=== PATIENT | female | born 1970 | race Caucasian/White ===

== ENCOUNTER 2017-07-27 02:54 | Emergency (ER) | payer BC ==
[~2017-07-27] VITALS: Ht 185.4 cm; Wt 63.6 kg
[~2017-07-27 02:54] MED LIST: BUPROPRION; ESTROGEL0.06%; NEURONTIN600 M1 PO; SEROQUEL; SUMATRIPTAN20 MG PO
[2017-07-27] MEDS ORDERED: KLONOPIN 1MG1 MG PO (03:08)
[2017-07-27] MEDS ORDERED: ZOVIRAX400 M1 PO (03:08)
[2017-07-27] MEDS ORDERED: ADDERALL 20 MG20 MG PO (03:08)
[2017-07-27] MEDS ORDERED: PROPRANOLOL HCL80 M4 PO (03:09)
[2017-07-27] MEDS ORDERED: SYNTHROID0.125 MG PO (03:09)
[2017-07-27] MEDS ORDERED: SEROQUEL 2525 MG/TAB PO (03:09)
[2017-07-27] MEDS ORDERED: IMITREX50 M1 PO (03:11)
[2017-07-27] MEDS ORDERED: FETZIMA40 MG PO (03:12)
[2017-07-27 04:43] VITALS: BP 135/77
== END 2017-07-27 04:43 | disposition home or self-care (01) ==
LOC: ED 02:54
DX: G43.109 Migraine with aura, not intractable, without status migrainosus (principal); F31.9 Bipolar disorder, unspecified; E03.9 Hypothyroidism, unspecified; D49.7 Neoplasm of unspecified behavior of endocrine glands and other parts of nervous system
CPT/HCPCS: J1200; J1885; J2550

== ENCOUNTER → 2018-04-15 | Day surgery (SDC) | payer BC ==
[~2018-04-15] MED LIST changes: +ADDERALL 20 MG20 MG PO; +FETZIMA40 MG PO; +IMITREX50 M1 PO; +KLONOPIN 1MG1 MG PO; +PROPRANOLOL HCL80 M4 PO; +SEROQUEL 2525 MG/TAB PO; +SYNTHROID0.125 MG PO; +ZOVIRAX400 M1 PO
== END ==
LOC: MSO 09:38
DX: Z12.11 Encounter for screening for malignant neoplasm of colon (principal); E03.9 Hypothyroidism, unspecified
CPT/HCPCS: 00812; J2704; J7120

== ENCOUNTER → 2018-04-17 | Outpatient (CLI) | payer BC | LOC: MAMMO 08:28 | DX: Z12.31 Encounter for screening mammogram for malignant neoplasm of breast (principal) ==

== ENCOUNTER → 2019-05-06 | Outpatient (CLI) | payer OTHER | LOC: RAD 12:37 | DX: S92.532A Displaced fracture of distal phalanx of left lesser toe(s), initial encounter for closed fracture (principal) ==

== ENCOUNTER → 2019-12-29 | Outpatient (CLI) | payer BC | LOC: MAMMO 09:18 | DX: Z12.31 Encounter for screening mammogram for malignant neoplasm of breast (principal) ==

== ENCOUNTER → 2022-05-17 | Outpatient (CLI) | payer BC | LOC: MAMMO 14:25 | DX: Z12.31 Encounter for screening mammogram for malignant neoplasm of breast (principal) ==